=== PATIENT | female | born 1955 | race Caucasian/White ===

== ENCOUNTER 2017-07-16 21:47 | Inpatient (IN) | payer MEDICARE, MEDICAID ==
[~2017-07-16] VITALS: Ht 157.5 cm; Wt 77.1 kg
--- NOTE | ~2017-07-16 | CONS ---
[facility] [address] [place], [place] [address] Draft DATE OF CONSULTATION: 07/17/17 IDENTIFICATION This is a 62-year-old woman who came to the ER last night. I got called by the ER physician around 2:15 or so and he told me about her history of having abdominal pain for 3 days and then coming to the ER, being worked up by the physician. In the ER, he thought that it appeared to be gastroenteritis, but again ended up getting a CT scan, which showed some swelling of the mesentery, possible volvulus, possible closed loop bowel obstruction, possible omental torsion, and possible gastroenteritis and he told me that all of her labs were okay except for her white count, which was low chronically and her glucose is up a little bit 150 or so and he thought she was fine and I did need to come in and see her, but since her history was a little bit odd, I have ended up waking up, coming in and saw her and she looked okay and was having good urine output, good vital signs, and I examined her and she did not have any peritonitis, then she had bowel tones and I thought we could watch her overnight carefully, and that is all and I want to get a baseline exam. I came in this morning at 6:30 and she said she felt better and life was better, which was good and now is awaiting for the Hospitalist to see her because they officially admitted the patient to the Hospitalist and I had suggested repeat labs and acute abdomen series this morning. Though the repeat labs never got done and her acute abdomen series never got done. In the meantime, the patient seems to, when the new pain medicines wear off, have more pain and I found out that she also had thrombocytopenia prior to her hydration in the 58,000 range and I am sure it is lower now and she is making good urine and the vital signs are fine. At that point, I told the Hospitalist, I would not have had her admitted here last night, we are 2 hours away from platelets here. Should she need emergency surgery, I thought that she should be at an institution where they had more technology, more surgeons, and blood bank close by. Plus there is some issue going on with the neutropenia and her thrombocytopenia, enlarged spleen, big portal vein and recanalized left umbilical vein. I went over all this with the radiologist. Her intestines looked fine. No swelling. No edema there. So, I got on the phone and talked to [facility]. They have agreed to take the patient in transfer with Dr. Akash Schmitz, but we are awaiting for a bed right now. So, I went ahead and got the Hospitalist to order repeat labs and they are just now drawing her labs and I have been working with [facility] to try and encourage them to get a bed because I am concerned and I think she is getting a little worse and I think she probably needs surgery and I do not think we should do it here in [place]. We will be monitoring her closely and hopefully get her out here by a helicopter to where they have more technology, more people, and readily available blood bank in case they have problems with bleeding. Of note, her Coags, Pro time, PTT are okay, which is good. We will be following her with the Hospitalist, etc. IMPRESSION Abdominal discomfort, etiology exactly undetermined, could be twisted bowel, but she has only had laparoscopic cholecystectomy and appendectomy. I do not think it is a closed loop bowel obstruction a nd that she is having diarrhea and bowel movements and nausea PATIENT NAME: ROQUE MICHAEL CONSULTATION DATE OF : 55 PHYSICIAN: ILAN FISCHER MD REPORT #: [id number] REPORT IS CONFIDENTIAL AND NOT TO BE RELEASED WITHOUT AUTHORIZATION [address], [place] [address] Draft with this, it could be gastroenteritis and yet I think she needs to be somewhere where people could follow her serially and make the decision about surgery. Since I think her abdominal exam is a little worsened, I think she probably is going to require surgery and I do not think it should be done here in [place]. We will follow her closely. Should this deteriorate rapidly, I would be in particular have to try to manage it here and then go to supervisor opening and picking the pieces as they fall. The patient and her family are aware of all of these concerns. MD MIKEY Bryant/Sage /[id number] PATIENT NAME: ROQUE MICHAEL CONSULTATION DATE OF : 55 PHYSICIAN: ILAN FISCHER MD REPORT #: [id number] REPORT IS CONFIDENTIAL AND NOT TO BE RELEASED WITHOUT AUTHORIZATION
--- NOTE | ~2017-07-16 | CONS ---
[facility] [address] [place], [place] [address] Draft DATE OF CONSULTATION: 07/17/17 She was seen in the ER in [place], [place], at around 2:15 am on July 17, 2017. This is a woman who is in her early 60s who comes in with a history of 2-3-day of pain. She is actually from [place], [place], [place] town in [facility] where I used to work until mid-April of this year, so she is familiar with the healthcare system there and she came over here for family issues. She was actually feeling not well when she left with her . Mrs. Branch has had at least a couple of days of abdominal pain, nausea, vomiting, and diarrhea. ER doctors worked her up rather extensively including a white count, which is low, but she has chronic neutropenia and a cold and also chem panel, which is pretty much normal. She ended up getting a CT with IV contrast, which showed a little bit of edema at the base of the mesentery and some swirling of the superior mesenteric vein around the artery, which is what the radiologist read. No evidence of obstruction. Consider possible mid volvulus which (A) I have never seen in an adult and (B) she does not act like she has got visceral ischemia, possible gastroenteritis and again like I said no evidence of obstruction at the present time. Upon carefully questioning the patient and her , the patient is a little bit knocked out and her has not had any narcotics and apparently, she has had something similar to this about a year ago, so a little bit curious. Clinically, it is most consistent with gastroenteritis and that is what the ER doctor also suggested when he called me up. I came in and look at her with him. Her exam is okay. She is overweight. There is no evidence of peritonitis. She actually got narcotics on board. I do not see anything that is pushing me to say we need to jump in and operate it right this moment. Options were discussed by me with the patient's concerning: That I am not sure what is going on. It could turn into some bad issues that could cost her her life and it could be something as simple as a gastroenteritis type picture. Option of staying here versus going to a larger institution was discussed, that is when he told me they are from [place], [place], and they know about [facility] there. It being 3 o'clock in the morning, they decided that they thought it is best to see her tonight with IV hydration. When the ER doctor called me, I thought it sounded more like gastroenteritis. I suggested admission through the Hospitalist, but I did get out of bed to come in and look at the CT, examined the patient and get a baseline exam. Should she deteriorate, we may have problems on our hands. Again, all this was discussed by me with the patient's and with the patient who was mostly sleeping through the examination. The decision was made to admit her to the Hospitalist, hydrate her with IV fluids, repeat labs, get acute abdomen series in the morning. I have told the ER doctor to get an EKG, coag, type screen and hold, repeat all labs in the morning, and an acute abdomen series first thing in the morning and we will revisit her clinical condition. Also, I told him to put a Vinson catheter in her and if she voids less than 40 mL in 2 hours, I be called. We will see what this shakes out. Hopefully, this is just gastroenteritis, gets well, and she gets on her way. If it turns into something that look s surgical, again serious considerations and options will have to be made by the patient, the patient's and the staff concerning where she should be PATIENT NAME: ROQUE BRANCH CONSULTATION DATE OF : 55 PHYSICIAN: ILAN FISCHER MD REPORT #: [id number] REPORT IS CONFIDENTIAL AND NOT TO BE RELEASED WITHOUT AUTHORIZATION [address] [place], [place] [address] Draft managed if it turns into a surgical issue. MD MIKEY Bryant/Sage /[id number] PATIENT NAME: ROQUE BRANCH CONSULTATION DATE OF : 55 PHYSICIAN: ILAN FISCHER MD REPORT #: [id number] REPORT IS CONFIDENTIAL AND NOT TO BE RELEASED WITHOUT AUTHORIZATION
[~2017-07-16 21:47] MED LIST: CARVEDILOL6.25 MG PO; COREG6.25 MG PO; EFFEXOR XR150 MG PO; FORTAMET500 MG PO; FUROSEMIDE40 MG PO; LANTUS100 UNITS/ SUB-Q; LISINOPRIL20 MG PO; MIRAPEX1 MG PO; NOVOLIN 70100 UNITS/ SUB-Q; OMEPRAZOLE20 MG PO; TRAMADOL HCL50 MG PO; ULTRAM50 MG PO; XIFAXAN550 MG PO; ZOFRAN ODT8 MG PO
--- NOTE | 2017-07-17 04:33 | NUR ---
PATIENT ARRIVED TO THE FLOOR AROUND 0300. PATIENT DROWSEY, POSSIBLY FROM MEDS GIVEN IN ED. EASY TO AROUSE AND ABLE TO ASNWER QUESTIONS APPROPRIATELY. PATIENT PAIN CONTROLLED AT THIS TIME, REPORTS 3/10 IN RLQ AND UPPER LEFT SIDE OF BACK. IVF INFUSING PER ORDERS. PATIENT NPO, GIVEN MOUTH SWABS PER REQUEST. PATIENT REPORTS SLIGHT NAUSEA, "BETTER THAN EARLIER". TELE MONITOR #7. PATIENT TRANSFERED TO BED FROM STRETCHER WITH SBA, APPEARS SLIGHTLY WEAK. PATIENT NOW RESTING, EYES CLOSED, RR 16. LUNGS ARE CLEAR, DRY COUGH. ABD SOFT, TENDER IN RLQ AND ULQ. BOWEL SOUNDS ACTIVE. CALL LIGHT IN REACH. BED ALARM ON.
--- NOTE | 2017-07-17 05:54 | NUR ---
PATIENT RESTING IN BED, EYES CLOSED. PULSE OX, 95% ON RA. PATIENT AROUSES TO VOICE. DENIES NEEDS AT THIS TIME. CALL LIGHT IN REACH, REMINDED HOW/WHEN TO USE CALL LIGHT.
--- NOTE | 2017-07-17 07:00 | NUR ---
BEDSIDE REPORT RECEIVED FROM RN RODNEY, PT AWAKE IN BED. ALERT, ORIENTED. HR 97, SPO2 98%. PT STATING NO PAIN AT TIME TIME, EXPERIENCING SOME NAUSEA. NS W 40 K INFUSING AT 200 ML/HR, IV SITE WNL. CALL LIGHT IN REACH, EMESIS BAG HANDED TO PT. WILL CONTINUE TO MONITOR.
--- NOTE | 2017-07-17 08:00 | NUR ---
MED STUDENT IN ROOM ASSESSING PT. PT STATING NO NAUSEA AT THIS TIME. ASSISTED PT TO INCREASE HOB SHE SAYS SHE GETS NAUSOUS WHEN LYING DOWN. FLUSHED IV SITE W 10 ML NS, LINE PATENT. PT HAS CALL LIGHT IN REACH, WILL CONTINUE TO MONITOR.
--- NOTE | 2017-07-17 08:20 | NUR ---
SPOKE WITH PATIENT IN ROOM. PATIENT IN BED, APPEARS COMFORTABLE. PT STATES SHE LIVES WITH HER IN [facility]. IS HERE DEALING WITH FAMILY ESTATE ISSUES. STATES THEY ARE LIVING IN AN RV AT THIS TIME WHILE THEY ARE LOOKING AT BUILDING A HOUSE. STATES SHE HAS A FEW STEPS INTO RV WITH A HANDLE, DENIES HAVING TROUBLE WITH AMBULATION AND STEPS. STATES SHE DOES HAVE SOME CHRONIC ISSUES WITH HER LEGS, AND SOMETIMES HER HAS TO HELP HER OUT OF THE BED, IT IS VERY LOW. PT STATES SHE HAS PCP IN [facility] AND SOME DOCTORS AT [facility] FOR HER OTHER ISSUES. PT DENIES ANY BARRIER TO BEING DISCHARGED TO HOME WITH HER .
[2017-07-17] MEDS ORDERED: OMEPRAZOLE40 MG PO (09:12)
--- NOTE | 2017-07-17 09:12 | NUR ---
DR. TELLEZ PRESENT IN PT ROOM, ASSESSING PT.
[2017-07-17] MEDS ORDERED: BACLOFEN10 MG PO (09:28)
[2017-07-17] MEDS ORDERED: CARVEDILOL25 MG PO (09:28)
[2017-07-17] MEDS ORDERED: NYSTATIN15 GM TOP (09:29)
[2017-07-17] MEDS ORDERED: GABAPENTIN300 MG PO (09:34)
[2017-07-17] MEDS ORDERED: GLIMEPIRIDE4 MG PO (09:34)
--- NOTE | 2017-07-17 09:51 | NUR ---
DR. BELLO NOW IN PT ROOM DISCUSSING TRANSFER OF PT TO BIGGER FACILITY DUE TO RISK OF LOW PLATELET COUNT, WBC IF NEED FOR SURGERY. MD PHONED PT'S TO MAKE AWARE. PT COMPLAINING OF 7/10 PAIN IN RIGHT SIDE OF ABDOMEN, NAUSEA. PRN DILAUDID 0.5 MG AND ZOFRAN 4MG IV ADMINISTERED FOR NAUSEA. CALL LIGHT IN REACH.
--- NOTE | 2017-07-17 10:30 | NUR ---
PATIENT RESTING IN BED, AT BEDSIDE AND POLICE MATRON CARE. DR. NICHOLE IN ROOM DISCUSSING POC WITH POSSIBLE TRANSFERING AND WORK UP THAT'S NEEDING TO BE DONE. VS STABLE. PATIENT AND FAMILY ASKING QUESTIONS.
--- NOTE | 2017-07-17 11:19 | NUR ---
MATILDE FROM DR. TELLEZ TO ADMINISTER PO CARVEDILOL. IV ZOSYN INFUSING AT 200 ML/HR. LR INFUSING AT 125 ML/HR, MG INFUSING AT 100 ML/HR. PT CHEWING ON ICE CHIPS. FAMILY PRESENT IN ROOM. CALL LIGHT WITH PT. WILL CONTINUE TO MONITOR.
--- NOTE | 2017-07-17 12:30 | NUR ---
ASKED BY STAFF NURSE TO TALK WITH PATIENT AND . STATES THEY HAVE SOME CONCERNS REGARDING SURGEON VISIT. SPOKE WITH PATIENT, , MONTE AND [id number] IN ROOM. ACCOMPANIED BY NURSING CELL INSPECTOR RAJINDER CAMACHO. WHEN ASKED IF THEY HAVE ANY QUESTIONS OR CONCERNS THE AND [id number] BOTH STATED THEY WERE A LITTLE CONFUSED ON WHAT WAS HAPPENING. THE STATED "THIS CONRADO SAYS SHE IS NEEDING EMERGENCY SURGERY AND YOU CAN'T DO IT HERE BECAUSE YOU DON'T HAVE THE BLOOD" AND ALSO "HE SEEMS LIKE HE HAS NOTHING TO DO BUT COME IN HERE EVERY FEW MINUTES BECAUSE SHE MIGHT NEED SURGERY QUICKLY IF SHE IS DYING". THE [id number] ASKED IF "DR SANCHEZ CAN BE CALLED" AND THE AGREED WITH THAT. EXPLAINED HE IS NOT AVAILABLE TODAY AND THAT IS WHY WE HAVE A LOCUM SURGEON COVERING. PATIENT DID SAY "I DON'T MIND HIM, AT LEAST HE IS CONCERNED AND TRYING TO FIGURE IT OUT". THE THEN ASKED IF THE OTHER DOCTOR IS AVAILABLE. "CAN DR TELLEZ COME IN?" I EXPLAINED THAT DR TELLEZ WAS IN [place] AND I COULD INDEED ASK HIM TO COME BACK IN. STATED HE DIDN'T GET A CHANCE TO TALK WITH DR TELLEZ "I WASN'T HERE YET". ALERTED DR TELLEZ TO THEIR REQUEST. HE STATED HE WOULD GO TALK WITH THEM.
--- NOTE | 2017-07-17 12:33 | NUR ---
BOAT DRIVER WAS CALLED IN PER PT REQUEST. SISTER ANATOLY WAS ALREADY PRESENT WHEN BOAT DRIVER ARRIVED. BOAT DRIVER READ SCRIPTURE TO PT AND PRAYERD WITH HER PER HER REUEST. PT STATED NO OTHER NEEDS AT THIS TIME BUT THAT SHE MIGHT DESIRE A BOAT DRIVER LATER. THIS CHARGE ENTRY CLERK INFORMED THE PT THAT ANOTHER BOAT DRIVER WAS IT ARCHITECT THURSDAY NIGHT AND THURSDAY SO THAT SHE MIGHT GET SOMEONE ELSE THIS WEEKEND.
--- NOTE | 2017-07-17 12:50 | NUR ---
PT BLOOD GLUCOSE 251, 6 UNITS NOVOLOG INSULIN ADMINISTERED PER SLIDING SCALE. PT IN BED, NO COMPLAINTS OF NAUSEA OR PAIN AT THIS TIME. OFFERED FAMILY COFFEE. PT HAS CALL LIGHT, WILL CONTINUE TO MONITOR.
[2017-07-17] MEDS ORDERED: AMLODIPINE BESYL5 MG PO (15:33)
[2017-07-17] MEDS ORDERED: CARTIA XT120 MG PO (15:35)
[2017-07-17] MEDS ORDERED: LACTULOSE10 GM/151 PO (15:40)
[2017-07-17] MEDS ORDERED: TOPIRAMATE50 MG PO (15:48)
[2017-07-17] MEDS ORDERED: VENLAFAXINE HCL75 M1 PO ×2 (15:50→15:51)
--- NOTE | 2017-07-17 15:50 | NUR ---
AFTERNOON ASSESSMENT COMPLETE. PT STATING THAT SHE HAS 6/10 PAIN ALONG RIGHT ABDOMEN THAT IS SHARP IN THE LOWER QUADRANT, "FEELS LIKE PINCHING" IN THE UPPER RIGHT QUADRANT AND RADIATES TO THE RIGHT FLANK. PT STATING THAT SHE HAS DULL PAIN WITH PALPATION ONLY ON LEFT UPPER ABDOMAL QUADRANT. PT HAS ACTIVE BOWEL TONES, NO NAUSEA AT THIS TIME. PT HAS NOT HAD BM AT THIS TIME, EDUCATED THAT STOOL SAMPLE IS NEEDED. TELE D/C'D PER MD ORDER. PT GIVEN CALL LIGHT, EATING POPSICLE IN BED PER MD OKAY. WILL CONTINUE TO MONITOR.
--- NOTE | 2017-07-17 16:13 | NUR ---
DR. FISCHER IN PT'S ROOM, VISITING WITH PT.
--- NOTE | 2017-07-17 17:31 | NUR ---
ASSISTED PT TO RESTROOM. PT DID NOT HAVE BM, FEELS LIKE SHE NEEDS TO, 100 ML URINE OUTPUT. PT VERY WEAK UPON STANDING, ABLE TO AMBULATE TO RESTROOM WITH RN ASSIST. PT GIVEN WARM BLANKET, BACK TO BED TO REST. CBG 189, ADMINISTERED 4 UNITS NOVOLOG INSULIN PER SLIDING SCALE. BED ALARM SET. CALL LIGHT NEXT TO PT.
--- NOTE | 2017-07-17 18:19 | NUR ---
IN PT'S ROOM TO ASSESS PAIN LEVEL, PRN OXYCODONE NOW ORDERED AFTER REQUEST TO DR. TELLEZ. PT SLEEPING IN BED, BREATING EQUALLY BILATERALLY. PT'S PRESENT AT BEDSIDE. BED ALARM SET. IV LR INFUSING AT 125 ML/HR.
--- NOTE | 2017-07-17 18:30 | NUR ---
PT IS RESTING IN BED SAFELY WITH CALL LIGHT IN REACH. PT ASKED FOR MORE ICE CHIPS AND IF SHE COULD HAVE BROTH.
--- NOTE | 2017-07-17 19:00 | NUR ---
RECEIVED REPORT AT 1900. FOUND PT IN BED RESTING. PT SEEMED A BIT SEDATED AND CONFUSED AT THIS TIME. THIS WAS LIKELY DUE TO PAIN MEDS GIVEN. PT DENIED N/V AND PAIN.
--- NOTE | 2017-07-17 21:09 | NUR ---
PT REQUESTED PAIN MEDICATION, BUT STATED SHE WANTED TO GET UP AND WALK FIRST BECAUSE HER LEGS WERE RESTLESS. UP WITH SBA, AMBULATED IN HALLWAY ONCE. UPON RETURNING TO HER ROOM, SHE REPORTED FEELING NAUSEATED. 4MG IV ZOFRAN AND 1 TAB OXYCODONE ADMINISTERED AT THIS TIME. PT DENIES FURTHER REQUESTS, CALL LIGHT IS WITHIN REACH.
--- NOTE | 2017-07-17 22:18 | NUR ---
V/S ARE WDL, PT COMPLAINED OF N/V, 6.25MG OF IV PHENERGAN WAS GIVEN. BG WAS 169, PT RECEIVED 2 UNITS OF NOVOLOG ALONG WITH SCHEDULED 30 UNITS OF LEVEMIR. STILL AWAITING STOOL SAMPLE. PT IS VOIDING SUFFICIENT. PT HAS NORMAL ACTIVE BOWEL TONES IN ALL QUADRANTS. PT DENIES PASSING GAS HOWEVER. ALL LOBES ARE CLEAR. SLIGHT HEART MURMMER HEARD.
--- NOTE | 2017-07-18 | EKG ---
[facility] [address] [facility] [place] [address] Signed Normal sinus rhythm Normal ECG No previous ECGs available Confirmed by LEO TELLEZ MD ([id number]) on 07/17/2017 11:59:51 PM Electronically Signed By: LEO TELLEZ MD 07/18/17 0000 PATIENT NAME: ROQUE MICHAEL Electrocardiogram DATE OF : 55 PHYSICIAN: LEO TELLEZ MD REPORT #: [id number] REPORT IS CONFIDENTIAL AND NOT TO BE RELEASED WITHOUT AUTHORIZATION
--- NOTE | 2017-07-18 00:30 | NUR ---
PT IS SLEEPING AT THIS TIME.
--- NOTE | 2017-07-18 02:38 | NUR ---
ASSISTED PT TO BATHROOM. PT HAS 700ML OUT. PT DENIES PAIN AND N/V AT THIS TIME. NORMAL BOWEL TONES ARE ACTIVE IN ALL QUADRANTS. NO BM YET.
--- NOTE | 2017-07-18 04:12 | NUR ---
PT IS SLEEPING AT THIS TIME
--- NOTE | 2017-07-18 05:27 | NUR ---
AT START OF SHIFT PT COMPLAINED OF NAUSEA AND ABD PAIN. ZOFRAN AND PHENERGAN WAS GIVEN WELL OXYCODON. PT HAS BEEN SLEEPING MOST OF THE NIGHT. FOR BOTH ASSESSMENTS PT HAD NORMAL ACTIVE BOWEL TONES. PT IS VOIDING WELL WITH SUFFICIENT OUTPUT. DURING LAST ASSESSMENT AT 0200 PT DENIED N/V AND PAIN. NO NEW ISSUES WERE NOTED SO FAR.
--- NOTE | 2017-07-18 08:09 | NUR ---
patient asked if she could have a popsicle as she is NPO, the nurse said yes she can, she also did her am care.
--- NOTE | 2017-07-18 10:44 | NUR ---
PT HAD CLEAR LIQUID TRAY AND BECAME NAUSEATED WITH ABD PAIN SHORTLY AFTER. PT MEDICATED WITH IV PHENERGAN. CLEAR LIQUIDS HELD AT THIS TIME. PT AT BEDSIDE.
--- NOTE | 2017-07-18 11:30 | NUR ---
PT HAD LOOSE STOOL, SAMPLE SENT TO LAB. PT SHOWERED INDEPENDENTLY. BACK TO BED AT THIS TIME. IV INFUSING WNL. PT REPORTING NAUSEA RESOLVED AT THIS TIME BUT HAVING ABD PAIN. AT BEDSIDE.
--- NOTE | 2017-07-18 12:25 | NUR ---
PATIENT TOOK A SHOWER AND GOT FRESH NEW BEDDING SHE IS CURRENTLY RESTING SHE HAD QUITE THE MORNING, SHE HASNT REQUESTED ANY MORE ASSISTANCE.
--- NOTE | 2017-07-18 15:30 | NUR ---
PT MEDICATED WITH IV PHENERGAN FOR C/O NAUSEA. PT UP TO BEDSIDE COMMODE INDEPENDENTLY. CALL LIGHT WITHIN REACH.
--- NOTE | 2017-07-18 17:08 | NUR ---
NOTED THAT PT HAS BECOME SLIGHTLY CONFUSED, NOT ORIENTED TO DATE, INITIALLY THOUGHT SHE WAS AT [facility] WHEN ASKED. NOTFIED DR. TELLEZ. RECEIVED ORDER TO HOLD PHENERGAN, OXY, AND LACTULOSE.
--- NOTE | 2017-07-18 18:51 | NUR ---
CONFUSION SEEMED TO WORSEN AND THEN HAS CLEARED SINCE HER HAS BEEN IN ROOM. STILL C/O NAUSEA, MINIMAL PAIN. UP TO BEDSIDE COMMODE INDEPENEDNTLY. CALL LIGHT WITHIN REACH.
--- NOTE | 2017-07-18 19:00 | NUR ---
RECEIVED REPORT AT 1900. FOUND PT IN BED AAO X4. PT DENIED PAIN AND N/V AT THIS TIME.
--- NOTE | 2017-07-18 21:53 | NUR ---
V/S ARE WDL, PT HAD BM X1 THIS SHIFT, PT HAS REMAINED AAOX4 SO FAR, NORMAL BOWEL SOUNDS IN ALL QUADRANTS, ALL LOBES ARE CLEAR, PT SEEMS MUCH STRONGER OVERALL. PT IS HUNGRY AND WANTS A SALTINE CRACKER. I TOLD HER I WOULD TALK TO MD ABOUT IT. BG WAS 140, NO INSULIN GIVEN. NO NEW CONCERNS FOR THIS PT AT THIS TIME.
--- NOTE | 2017-07-19 00:25 | NUR ---
PT IS SLEEPING AT THIS TIME.
--- NOTE | 2017-07-19 02:56 | NUR ---
PT IS AWAKE IN BED.PT AT THIS TIME DENIES PAIN AND N/V. PT TOLERATING CLEAR LIQUIDS SO FAR.
--- NOTE | 2017-07-19 04:05 | NUR ---
PT IS AWAKE IN BED. PT HAS NAUSEA. 4MG OF IV ZOFRAN WAS GIVEN. WILL CONTINUE TO MONITOR.
--- NOTE | 2017-07-19 05:59 | NUR ---
PT HAS REMAINED AAO THROUGHOUT THIS SHIFT. PT NORMAL BOWEL TONES IN ALL QUADRANTS. PT HAD BM YESTERDAY AT START OF SHIFT. URINE OUTPUT IS ADEQUATE. V/S ARE WDL, AT 0500 PT FOR THE FIRST TIME REPORTED NAUSEA AND ABD PAIN THIS SHIFT. ZOFRAN IV 4MG WAS GIVEN. SINCE THEN NAUSEA IS BETTER PT STATED. PT AT THIS TIME IS RESTING AGAIN.
--- NOTE | 2017-07-19 08:05 | NUR ---
PT AWAKE IN BED WORKING ON CLEAR LIQUIDS. HAD A SMALL AMOUNT, STATED SHE WAS "TAKING IT SLOW" BUT WAS STARTING TO HAVE A LITTLE BIT OF PAIN AND NAUSEA. PT ENCOURAGED TO NOT TAKE ANYMORE. PT ALERT AND ORIENTED THIS AM. UP TO BSC ONE TIME WHILE THIS RN IN ROOM, THOUGHT SHE WAS GOING TO HAVE A BM, VOIDED ONLY. BOTH IV'S FLUSH WELL. CALL LIGHT WITHIN REACH.
--- NOTE | 2017-07-19 08:43 | NUR ---
MED REC COMPLETE WITH ANAY REFILL HISTORY.
--- NOTE | 2017-07-19 10:30 | NUR ---
PT RESTING IN BED, EYES CLOSED, RESP EVEN AND UNLABORED.
--- NOTE | 2017-07-19 13:00 | NUR ---
PT HAD LIQUID STOOL, NOTED THAT ALL 8 OF POTASSIUM TABS WERE WHOLE IN STOOL. DR. TELLEZ MADE AWARE. PT ATE TOAST AFTER RECIEVING BENTYL, PT STILL REPORTS PAIN AND NAUSEA AFTER EATING BUT STATES "IT'S NOT BAD BEFORE." DENIES NEED FOR PAIN MEDS OR NAUSEA MEDS AT THIS TIME. CALL LIGHT WITHIN REACH.
--- NOTE | 2017-07-19 16:44 | NUR ---
PT SHOWERED INDEPENDENTLY. REPORTS "FEELING BETTER" AND WOULD LIKE TO TRY SOME MASHED POTATOES. CALL LIGHT WITHIN REACH.
--- NOTE | 2017-07-19 18:03 | NUR ---
PT CALLED TO SAY DINNER WAS NOT SETTLING WELL AND NEEDED ZOFRAN. AT BEDSIDE. PT ATTEMPTING TO KEEP IT DOWN.
--- NOTE | 2017-07-19 18:21 | NUR ---
PT C/O STOMACH DISCOMFORT AND NAUSEA AFTER EATING MASHED POTATOES. MEDICATED WITH IV ZOFRAN. AT BEDSIDE.
--- NOTE | 2017-07-19 19:10 | NUR ---
REPORT RECEIVED FROM OFFGOING RN. PT LYING IN BED. CALL LIGHT WITHIN REACH.
--- NOTE | 2017-07-19 20:40 | NUR ---
PT LYING IN BED WITH EYES CLOSED. PT WAKES EASILY. STATES THAT SHE NEEDS TO USE THE COMMODE TO HAVE BM. PT INDEPENDENT IN GETTING FROM BED TO COMMODE, TOLERATED WELL. PT UNABLE TO HAVE BM. PAIN INCREASED WITH GETTING UP/PASSING GAS, PT RATES 7/10 TO ABD. DESCRIBES CRAMPING/ SHARP PAIN. PRN BENTYL TO BE ADMINISTERED. PT ASSESSMENT COMPLETE. BT'S ACTIVE. ABD OBESE. PT REPORTS TENDERNESS UPON PALPATION. PT REPORTS THAT SHE WAS ABLE TO TOLERATED MASHED POTATOES FOR DINNER. DENIES NAUSEA AT THIS TIME. PT REQUESTING PUDDING AND JUD CRACKERS. REPORTS THAT SHE IS HUNGRY. PT DENIES OTHER NEEDS AT THIS TIME. CALL LIGHT WITHIN REACH.
--- NOTE | 2017-07-19 22:15 | NUR ---
pt resting with eyes closed. respirations even and unlabored. call light within reach.
--- NOTE | 2017-07-20 00:26 | NUR ---
PT UP TO USE BSC. STATES THAT PAIN IS WELL CONTROLLED. REQUESTS DIET 7 UP. DENIES OTHER NEEDS AT THIS TIME. CALL LIGHT WITHIN REACH.
--- NOTE | 2017-07-20 03:02 | NUR ---
PT RESTING IN BED WITH EYES CLOSED. WAKES EASILY. REPORTS THAT PAIN IS WELL CONTROLLED AT THIS TIME, DENIES NAUSEA. ASSESSMENT COMPLETED. BT'S ACTIVE. RLQ REMAINS TENDER TO PALPATION. ASSESSMENT OTHERWISE WNL. PT REPORTS THAT SHE FEELS MORE CONFIDENT EATING SINCE SHE DID NOT HAVE EMESIS AFTER DINNER, OR SNACK EARLIER. PT REQUESTING JUD CRACKERS X2 PACKS. PT SITTING AT BEDSIDE EATING. DENIES OTHER NEEDS. CALL LIGHT WITHIN REACH.
--- NOTE | 2017-07-20 05:40 | NUR ---
PT SITTING UP IN BED WATCHING THE NEWS. STATES THAT ABD REMAINS TENDER, AGREES THAT IT IS BETTER THAN IT HAD BEEN. PT DENIES NAUSEA AT THIS TIME. REQUESTS WATER AND DIET 7 UP. EDUCATION PROVIDED ON HOW TO ORDER BREAKFAST VIA ROOM SERVICE. PT STATES UNDERSTANDING. CALL LIGHT WITHIN REACH.
--- NOTE | 2017-07-20 06:33 | NUR ---
PT SLEPT MOST OF SHIFT. ABD PAIN X 1, BENTYL GIVEN. PT REPORTED SLIGHT NAUSEA, ATE PUDDING AND CRACKERS, REPORTED NAUSEA WAS RELIEVED. PT ALSO REQUESTS CRACKERS IN THE NIGHT, NO REPORTS OF NAUSEA AFTER EATING. BT'S ACTIVE. ABD TENDER ESPECIALLY TO RLQ. UO QS. PT INDEPENDENT TO BSC. LR @ 75.
--- NOTE | 2017-07-20 07:15 | NUR ---
PT PREMEDICATED WITH BENTYL AND TIGAN PRIOR TO BREAKFAST. PT REPORTS CONSTANT ABD PAIN, ESPECIALLY IN RIGHT LOWER QUADRANT AND LEFT UPPER, STATES "IT IS ALWAYS EMIGDIO THERE, BUT DOES GET WORSE AFTER EATING AND SOMETIMES WITH BOWEL MOVEMENTS." ALSO REPORTED NAUSEA FIRST THING THIS AM. PT IS ALERT AND ORIENTED, INDEPENDENT IN ROOM, USES CALL LIGHT APPROPRIATELY.
[2017-07-20] MEDS ORDERED: DICYCLOMINE HCL10 MG PO (09:04)
[2017-07-20] MEDS ORDERED: CARVEDILOL25 MG PO (09:05)
[2017-07-20] MEDS ORDERED: ONDANSETRON HCL4 MG PO (09:06)
== END 2017-07-20 10:40 | disposition home or self-care (01) | DRG 392 ==
LOC: ED 21:47 → MS 21:48
PROVIDERS: ADMIT Internal Medicine
PROC: 3E0234Z Introduction of Serum, Toxoid and Vaccine into Muscle, Percutaneous Approach (ICD-10-PCS; principal; 2017-07-20)
DX: A08.4 Viral intestinal infection, unspecified (principal); D61.818 Other pancytopenia; I38 Endocarditis, valve unspecified; I10 Essential (primary) hypertension; K74.60 Unspecified cirrhosis of liver; K76.0 Fatty (change of) liver, not elsewhere classified; R93.3 Abnormal findings on diagnostic imaging of other parts of digestive tract; E11.9 Type 2 diabetes mellitus without complications; G71.3 Mitochondrial myopathy, not elsewhere classified; M46.92 Unspecified inflammatory spondylopathy, cervical region; R63.4 Abnormal weight loss; R16.1 Splenomegaly, not elsewhere classified; R10.84 Generalized abdominal pain; G25.81 Restless legs syndrome; I25.10 Atherosclerotic heart disease of native coronary artery without angina pectoris; Z23 Encounter for immunization; E87.6 Hypokalemia; F39 Unspecified mood [affective] disorder; E83.42 Hypomagnesemia; Z79.4 Long term (current) use of insulin; Z79.899 Other long term (current) drug therapy; Z79.84 Long term (current) use of oral hypoglycemic drugs; Z79.2 Long term (current) use of antibiotics; Z86.73 Personal history of transient ischemic attack (TIA), and cerebral infarction without residual deficits; Z88.5 Allergy status to narcotic agent; Z91.19 Patient's noncompliance with other medical treatment and regimen; Z88.7 Allergy status to serum and vaccine; Z88.8 Allergy status to other drugs, medicaments and biological substances
CPT/HCPCS: 36415; 74022; 74177; 80053; 81001; 82140; 82150; 82274; 83690; 83735; 85025; 85610; 85730; 86850; 86900; 86901; 87045; 87046; 87077; 87205; 87493; 90674; 93005; 93010; 94762; G0008; J1170; J2405; J2543; J2550; J3475; J7030; J7120; Q9967